=== PATIENT | male | born 2000 | race Hispanic/Latino ===

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

== ENCOUNTER → 2023-10-11 | Emergency (ER) | payer SELFPAY ==
[~2023-10-11] MED LIST: IBUPROFEN 200 MG TAB PO ONE; IBUPROFEN 400 MG TAB ONE
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
[2023-10-11 17:37] VITALS: BP 128/98; TEMP 98.8; O2SAT 97
== END ==
LOC: ER 14:43
DX: S00.83XA Contusion of other part of head, initial encounter (principal)
CPT/HCPCS: 70450; 72125; 99283